=== PATIENT | female | born 1955 ===

== ENCOUNTER 2018-04-26 12:40 | Outpatient (CLI) | payer OTHER | END 2018-04-26 16:49 | disposition home or self-care (01) | LOC: RAD 12:40 | DX: J11.1 Influenza due to unidentified influenza virus with other respiratory manifestations (principal); R05 Cough ==

== ENCOUNTER 2018-04-26 13:12 | Outpatient (CLI) | payer OTHER | END 2018-04-26 13:15 | disposition home or self-care (01) | LOC: LAB 13:12 | DX: J41.0 Simple chronic bronchitis (principal); B96.0 Mycoplasma pneumoniae [M. pneumoniae] as the cause of diseases classified elsewhere; J11.1 Influenza due to unidentified influenza virus with other respiratory manifestations ==

== ENCOUNTER 2019-03-29 05:57 | Day surgery (SDC) | payer OTHER | END 2019-03-29 20:00 | disposition designated cancer center or children's hospital (05) | LOC: AMB-ENDOS 05:57 → O/R 17:01 → AMB-ENDOS 17:01 → MEDJ 17:57 → O/R 17:57 → MEDJ 17:57 → AMB-ENDOS 20:00 → O/R 03-30 10:15 → MEDJ 03-30 10:15 | DX: K22.2 Esophageal obstruction (principal); K22.0 Achalasia of cardia ==